=== PATIENT | female | born 1995 | race Caucasian/White ===

== ENCOUNTER 2022-10-29 09:29 | Day surgery (SDC) | payer MEDICAID ==
[~2022-10-29] VITALS: Ht 172.7 cm; Wt 84.1 kg
[~2022-10-29 09:29] MED LIST: SODIUM CHLORIDE 0.9% 1,000 ML IV ONE; SODIUM CHLORIDE 0.9% 1,000 ML ONE
[2022-10-29] MEDS ORDERED: PROPOFOL 1% 20 ML VIAL IVP ONE (09:30)
[2022-10-29] MEDS ORDERED: LIDOCAINE/PF 2% 5 ML VIAL IM ONE (09:30)
[2022-10-29] MEDS ORDERED: DESV50TA35 PO (10:26)
[2022-10-29] MEDS ORDERED: AMPH20CA PO (10:26)
[2022-10-29] MEDS ORDERED: HYDR-4527 PO (10:26)
[2022-10-29] MEDS ORDERED: CLON-595 PO (10:26)
[2022-10-29] MEDS ORDERED: NICO-650 TP (10:26)
[2022-10-29] MEDS ORDERED: DICY20TA95 PO (10:26)
== END 2022-10-29 12:55 | disposition home or self-care (01) ==
LOC: SURGERY 09:29
PROVIDERS: ATTEND Internal Medicine Gastroenterology
DX: K29.70 Gastritis, unspecified, without bleeding (principal); K21.9 Gastro-esophageal reflux disease without esophagitis; F32.A Depression, unspecified; E66.9 Obesity, unspecified; F43.10 Post-traumatic stress disorder, unspecified; Z87.891 Personal history of nicotine dependence; F41.9 Anxiety disorder, unspecified; Z80.1 Family history of malignant neoplasm of trachea, bronchus and lung; Z80.41 Family history of malignant neoplasm of ovary; Z98.890 Other specified postprocedural states; Z79.899 Other long term (current) drug therapy; Z68.27 Body mass index [BMI] 27.0-27.9, adult
CPT/HCPCS: 43239; 84703; 88305; 88312; 88313; C1769; J2704; J3490; J7030